=== PATIENT | male | born 1955 | race Caucasian/White ===

== ENCOUNTER 2018-02-08 07:06 | Observation (INO) | payer BC ==
[2018-02-08] MEDS: FAMOTIDINE 20 MG TAB PO (07:00)
[2018-02-08] MEDS: DIAZEPAM 5 MG TAB PO (07:00)
[~2018-02-08 07:06] MED LIST: SOD CHLORIDE 0.45% 1,000 ML IV
[2018-02-08 07:59] LABS: ADD MAN DIFF? NO
[2018-02-08 08:05] LABS: BASOPHIL # 0.1 10^3/ul (0.0-0.1); BASOPHILS % 0.7 % (0.0-2.0); EOSINOPHILS # 0.3 10^3/ul (0.0-0.5); EOSINOPHILS % 2.7 % (0.0-7.0); HEMATOCRIT 46.9 % (42.0-52.0); HEMOGLOBIN 15.7 g/dl (14.0-18.0); LYMPHOCYTES # 4.3 10^3/ul (0.8-2.9); LYMPHOCYTES % 35.4 % (15.0-51.0); MEAN CORPUSCULAR HEMOGLOBIN 27.7 pg (29.0-33.0); MEAN CORPUSCULAR HGB CONC 33.5 g/dl (32.0-37.0); MEAN CORPUSCULAR VOLUME 82.7 fl (82.0-101.0); MEAN PLATELET VOLUME 9.4 fl (7.4-10.4); MONOCYTE # 0.9 10^3/ul (0.3-0.9); MONOCYTES % 7.4 % (0.0-11.0); NEUTROPHIL # 6.4 10^3/ul (1.6-7.5); NEUTROPHILS % 53.1 % (39.0-77.0); PLATELET COUNT 310 10^3/UL (140-415); RED BLOOD COUNT 5.67 10^6/ul (4.70-6.10); RED CELL DISTRIBUTION WIDTH 13.5 % (11.5-14.5)
[2018-02-08 08:21] LABS: CHOL/HDL RATIO 3.8 RATIO; HDL CHOLESTEROL 31 mg/dl (30-78); LDL CHOLESTEROL,CALCULATED 34 mg/dl; TRIGLYCERIDES 272 mg/dl (0-149)
[2018-02-08 08:21] LABS: CHOLESTEROL 119 mg/dl (100-200)
[2018-02-08 08:23] LABS: INR 0.88; PT RATIO 0.9
[2018-02-08 08:24] LABS: PARTIAL THROMBOPLASTIN TIME 34.1 Sec (25.0-35.0)
[2018-02-08] MEDS ORDERED: NITROGLYCERIN (IC) 100 MCG/ML INJ (08:38)
[2018-02-08] MEDS ORDERED: HEPARIN 1000 UNITS/ML 10 ML INJ (08:38)
[2018-02-08] MEDS ORDERED: LIDOCAINE 1% (MDV) 20 ML INJ (08:38)
[2018-02-08] MEDS ORDERED: VERAPAMIL 5 MG INJ (08:38)
[2018-02-08] MEDS ORDERED: IODIXANOL LOCM 100 ML BTL (08:38)
[2018-02-08] MEDS ORDERED: FENTAnyl 50 MCG/ML VIAL (09:02)
[2018-02-08] MEDS ORDERED: MIDAZOLAM 1 MG/ML 2 ML INJ (09:02)
[2018-02-08 09:21] LABS: ANION GAP 19 (8-16); CARBON DIOXIDE 27 mmol/L (21-31); CHLORIDE 101 mmol/L (97-110); GLUCOSE 179 mg/dl (70-220)
[2018-02-08 09:24] LABS: BLOOD UREA NITROGEN 16 mg/dl (7-20); CALCIUM 9.5 mg/dl (8.4-10.2); CREATININE 1.15 mg/dl (0.61-1.24); POTASSIUM 4.1 mmol/L (3.5-5.1); SODIUM 143 mmol/L (135-144)
[2018-02-08] MEDS ORDERED: CLOPIDOGREL 300 MG TAB (09:50)
[2018-02-08] MEDS ORDERED: ASPIRIN 325 MG TAB (09:50)
[2018-02-08] MEDS ORDERED: ONDANSETRON 4 MG INJ IV (10:00)
[2018-02-08] MEDS ORDERED: ACETAMINOPHEN 325 MG TAB PO (10:00)
[2018-02-08] MEDS ORDERED: AL HYDROX/MG HYDROX/SIMETH 30 ML CUP PO (10:00)
[2018-02-08] MEDS ORDERED: morphine 2 MG INJ IV (10:00)
[2018-02-08] MEDS ORDERED: ZOLPIDEM 5 MG TAB PO (10:00)
[2018-02-08] MEDS ORDERED: OXYCODONE/ACETAMINOPHEN (5/325) TAB PO (10:00)
[2018-02-08] MEDS: SOD CHLORIDE 0.9% 1,000 ML IV (10:50)
[2018-02-08] MEDS: POTASSIUM CHLORIDE 50 ML IVPB (15:42)
[2018-02-08] MEDS ORDERED: PENDING SANTYL ORDER FOR WOUND CARE XX (16:30)
[2018-02-08] MEDS ORDERED: GLUCOSE GEL 15 GRAM TUBE PO ×2 (16:30)
[2018-02-08] MEDS ORDERED: GLUCAGON 1 MG INJ IM (16:30)
[2018-02-08] MEDS ORDERED: DEXTROSE 50% 50 ML SYRINGE IV ×2 (16:30)
[2018-02-08] MEDS ORDERED: GLUCOSE GEL 15 GRAM TUBE BUCCAL (16:30)
[2018-02-08 17:10] LABS: HEMOGLOBIN A1C 10.5 % (0-5.9)
[2018-02-08] MEDS: INSULIN ASPART [NOVOLOG] 3 ML PEN SC ×2 (17:59→20:21)
[2018-02-08] MEDS: ATORVASTATIN 40 MG TAB PO (20:19)
[2018-02-08] MEDS: GABAPENTIN 100 MG CAP PO (20:19)
[2018-02-09] MEDS: ACCU-CHEK XX (02:33)
[2018-02-09 05:52] LABS: ADD MAN DIFF? NO
[2018-02-09 05:55] LABS: BASOPHIL # 0.1 10^3/ul (0.0-0.1); BASOPHILS % 0.6 % (0.0-2.0); EOSINOPHILS # 0.3 10^3/ul (0.0-0.5); EOSINOPHILS % 1.8 % (0.0-7.0); HEMATOCRIT 47.1 % (42.0-52.0); HEMOGLOBIN 15.6 g/dl (14.0-18.0); LYMPHOCYTES # 4.1 10^3/ul (0.8-2.9); LYMPHOCYTES % 26.5 % (15.0-51.0); MEAN CORPUSCULAR HEMOGLOBIN 27.6 pg (29.0-33.0); MEAN CORPUSCULAR HGB CONC 33.1 g/dl (32.0-37.0); MEAN CORPUSCULAR VOLUME 83.4 fl (82.0-101.0); MEAN PLATELET VOLUME 9.7 fl (7.4-10.4); MONOCYTES % 6.5 % (0.0-11.0); NEUTROPHIL # 9.8 10^3/ul (1.6-7.5); NEUTROPHILS % 63.9 % (39.0-77.0); PLATELET COUNT 304 10^3/UL (140-415); RED BLOOD COUNT 5.65 10^6/ul (4.70-6.10); RED CELL DISTRIBUTION WIDTH 13.6 % (11.5-14.5)
[2018-02-09 05:55] LABS: WHITE BLOOD COUNT 15.3 10^3/ul (4.8-10.8)
[2018-02-09 06:06] LABS: HEMOGLOBIN A1C 10.3 % (0-5.9)
[2018-02-09 06:14] LABS: CHOLESTEROL 118 mg/dl (100-200)
[2018-02-09 06:14] LABS: CHOL/HDL RATIO 4.5 RATIO; HDL CHOLESTEROL 26 mg/dl (30-78); LDL CHOLESTEROL,CALCULATED 34 mg/dl; TRIGLYCERIDES 292 mg/dl (0-149)
[2018-02-09 06:32] LABS: FREE T4 (FREE THYROXINE) 1.34 ng/dl (0.78-2.44)
[2018-02-09 06:34] LABS: ANION GAP 15 (8-16); BLOOD UREA NITROGEN 15 mg/dl (7-20); CALCIUM 8.8 mg/dl (8.4-10.2); CARBON DIOXIDE 27 mmol/L (21-31); CHLORIDE 105 mmol/L (97-110); CREATININE 0.99 mg/dl (0.61-1.24); GLUCOSE 234 mg/dl (70-220); POTASSIUM 4.6 mmol/L (3.5-5.1); SODIUM 142 mmol/L (135-144)
[2018-02-09] MEDS: DIPHENHYDRAMINE 50 MG CAP PO (07:00)
[2018-02-09] MEDS: CLOPIDOGREL 75 MG TAB PO (08:14)
[2018-02-09] MEDS: GABAPENTIN 100 MG CAP PO (08:14)
[2018-02-09] MEDS: ASPIRIN (EC) 81 MG TAB PO (08:14)
[2018-02-09] MEDS: INSULIN ASPART [NOVOLOG] 3 ML PEN SC ×4 (08:15→11:48)
[2018-02-09] MEDS: INSULIN GLARGINE [LANtus] 3 ML PEN SC (08:17)
[2018-02-09] MEDS: METOPROLOL 50 MG TAB PO (10:30)
[2018-02-09] MEDS: BENAZEPRIL 40 MG TAB PO (11:00)
[2018-02-09] MEDS ORDERED: METOPROLOL 100 MG TAB PO (12:00)
[2018-02-09] MEDS ORDERED: AMLODIPINE 10 MG TAB PO (12:00)
[2018-02-09] MEDS ORDERED: LINAGLIPTIN 5 MG TABLET PO (12:00)
[2018-02-09] MEDS ORDERED: DIGOXIN 0.25 MG TAB PO (13:00)
[2018-02-10] MEDS ORDERED: GLIMEPIRIDE 2 MG TAB PO (07:35)
[2018-02-10] MEDS ORDERED: BENAZEPRIL 40 MG TAB PO (09:00)
[2018-02-10] MEDS ORDERED: BUPROPION (XL) 150 MG TAB PO (09:00)
== END 2018-02-09 13:00 | disposition home or self-care (01) ==
LOC: SDS 07:06 → REC 09:53 → ICU 10:10
PROVIDERS: Internal Medicine
DX: I25.10 Atherosclerotic heart disease of native coronary artery without angina pectoris (principal); I34.0 Nonrheumatic mitral (valve) insufficiency; I10 Essential (primary) hypertension; E78.5 Hyperlipidemia, unspecified; E11.9 Type 2 diabetes mellitus without complications
CPT/HCPCS: 71045; 80048; 80061; 82962; 83036; 84439; 84484; 85025; 85610; 85730; 93005; 93458